=== PATIENT | male | born 1985 | race Caucasian/White ===

== ENCOUNTER 2017-02-02 09:42 | Emergency (ER) | payer SELFPAY ==
--- NOTE | 2017-02-02 09:54 | CPEKG ---
Heart Rate: 52 RR Interval: 1154 P-R Interval: 132 QRSD Interval: 94 QT Interval: 428 QTC Interval: 398 P [place]: 45 QRS [place]: 81 T Wave [place]: 56 EKG Severity - NORMAL ECG - EKG Impression: SINUS RHYTHM EKG Impression: ST ELEV, PROBABLE NORMAL EARLY REPOL PATTERN Electronically Signed By: Mustapha Hood 02-Feb-2017 14:03:49
--- NOTE | 2017-02-02 10:01 | EDPHY ---
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 - Social History Smoking Status: Current every day smoker Constitutional: Initial Vital Signs Temperature (C) 36.4 C 02/02/17 09:50 Heart Rate 64 02/02/17 09:50 Respiratory Rate 18 02/02/17 09:50 Blood Pressure 111/66 02/02/17 09:50 O2 Sat (%) 97 02/02/17 09:50 O2 Delivery Mode Room Air Allergies/Adverse Reactions: Penicillins Allergy (Unverified 02/02/17 10:02) Sulfa (Sulfonamide Antibiotics) Allergy (Unverified 02/02/17 10:02) Home Medications: Medication Instructions Recorded NK [No Known Home Meds] 02/02/17 Medical Decision Making ED Course/Re-evaluation: CHIEF COMPLAINT: Racing heart rate HISTORY OF PRESENT ILLNESS: The patient is a 31 y/o male arriving with his complaining of intermittent episodes of racing heart rate and feeling vaguely "weird" since last night. He describes a sensation of a rapid, pounding heart and like he had "taken shrooms" and was "out of my body." He lied down after the first episode and his symptoms seemed to resolve. This morning, the same symptoms recurred. His states he was pale with a heart rate of 90. The patient smokes marijuana daily, but withheld using it today thinking it could be causing his symptoms. He also tried treating it by eating sugar, but this did not affect his symptoms. He denies new medications or other changes in daily habits. No recent trauma or illness. 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 No associated shortness of breath, chest pain, fever, or other definable symptoms by the patient. REVIEW OF SYSTEMS: A 10 point review of systems was performed and is negative with the exception of the elements mentioned in the history of present illness. PHYSICAL EXAM: General Appearance: Alert, well hydrated, appropriate, and non-toxic appearing. Head: Atraumatic without scalp tenderness or obvious injury Eyes: Pupils equal, round, reactive to light and accommodation, EOMI, no trauma , no injection. Nose: Atraumatic, no rhinorrhea, clear. Throat: There is no erythema or exudates, no lesions, normal tonsils, mucus membranes moist. Neck: Supple, non-tender, no lymphadenopathy. Respiratory: No retractions, no distress, no wheezes, and no accessory muscle use. Lungs are clear to auscultation bilaterally. Cardiovascular: Regular rate and rhythm, no murmurs, rubs, or gallops. Good capillary refill all extremities. Gastrointestinal: Abdomen is soft, non-tender, non-distended, no masses, no rebound, no guarding, no peritoneal signs. Musculoskeletal: Normal active ROM of all extremities, atraumatic. Neurological: Alert, appropriate, and interactive. Nonfocal neuro exam. Skin: No rashes, good turgor, no nodules on palpation. PAST MEDICAL HISTORY: Head injury 04/25 PAST SURGICAL HISTORY: Denies SOCIAL HISTORY: at bedside. Has children. 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 Daily marijuana use. 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 DIAGNOSTICS/PROCEDURES/CRITICAL CARE TIME: The 12 lead EKG was interpreted by myself. Sinus rhythm rate 52 with early repolarization. See hard copy and/or "tracemaster" electronic copy for interpretation. DIFFERENTIAL DIAGNOSIS: The differential diagnosis for the patient's palpitations included but was not limited to anxiety, drug use, various causes of sinus tachycardia such as dehydration and medicines, SVT, atrial flutter, atrial fibrillation, pulmonary causes. MEDICAL DECISION MAKING: This is a well-appearing 31 y/o male who presents for evaluation of rapid heart rate and vague "weird-feeling" episodes recurring since last night. At time of assessment, he is asymptomatic with a heart rate of 52. His EKG is unremarkable. This could be SVT, but the highest HR noted at home was only 90, which is not consistent with SVT. I think this is more likely related to anxiety. Plan for IV, and labs including CBC, CHEM, troponin, LFTs, Mg to rule out cardiac etiology. Labs are unremarkable. Reassessed patient and discussed results. His symptoms appear more likely to be a panic attack, but he will be referred to cardiology for further evaluation of possible SVT. He's been given a prepack of Ativan as well. Return precautions given. He is comfortable with this plan. - Data Points Laboratory Results: Laboratory Results 02/02/17 10:04 02/02/17 10:04 02/02/17 02/02/17 02/02/17 10:04 10:04 10:04 WBC 5.26 10^3/uL 10^3/uL (3.80-9.50) RBC 4.85 10^6/uL 10^6/uL (4.40-6.38) Hgb 16.6 g/dL g/dL (13.7-17.5) Hct 45.8 % % (40.0-51.0) MCV 94.4 fL fL (81.5-99.8) MCH 34.2 pg H pg (27.9-34.1) MCHC 36.2 g/dL g/dL (32.4-36.7) RDW 11.9 % % (11.5-15.2) Plt Count 145 10^3/uL L 10^3/uL (150-400) MPV 9.9 fL fL (8.7-11.7) Neut % (Auto) 66.8 % % (39.3-74.2) Lymph % (Auto) 21.5 % % (15.0-45.0) Park % (Auto) 9.9 % % (4.5-13.0) Eos % (Auto) 0.8 % % (0.6-7.6) Baso % (Auto) 0.8 % % (0.3-1.7) Nucleat RBC Rel Count 0.0 % % (0.0-0.2) Absolute Neuts (auto) 3.52 10^3/uL 10^3/uL (1.70-6.50) Absolute Lymphs (auto) 1.13 10^3/uL 10^3/uL (1.00-3.00) Absolute Monos (auto) 0.52 10^3/uL 10^3/uL (0.30-0.80) Absolute Eos (auto) 0.04 10^3/uL 10^3/uL (0.03-0.40) Absolute Basos (auto) 0.04 10^3/uL 10^3/uL (0.02-0.10) Absolute Nucleated RBC 0.00 10^3/uL 10^3/uL (0-0.01) Immature Gran % 0.2 % % (0.0-1.1) Immature Gran # 0.01 10^3/uL 10^3/uL (0.00-0.10) D-Dimer < 0.27 ug/mLFEU ug/mLFEU (0.00-0.50) Sodium 140 mEq/L mEq/L (134-144) Potassium 4.3 mEq/L mEq/L (3.5-5.2) Chloride 105 mEq/L mEq/L (97-110) Carbon Dioxide 23 mEq/l mEq/l (22-31) Anion Gap 12 mEq/L mEq/L (8-16) BUN 15 mg/dL mg/dL (7-23) Creatinine 0.8 mg/dL mg/dL (0.7-1.3) Estimated GFR > 60 Glucose 99 mg/dL mg/dL (70-100) Calcium 9.6 mg/dL mg/dL (8.5-10.4) Magnesium 2.2 mg/dL mg/dL (1.6-2.3) Total Bilirubin 1.4 mg/dL mg/dL (0.1-1.4) Conjugated Bilirubin 0.3 mg/dL mg/dL (0.0-0.5) Unconjugated Bilirubin 1.1 mg/dL mg/dL (0.0-1.1) AST 25 IU/L IU/L (17-59) ALT 39 IU/L IU/L (21-72) Alkaline Phosphatase 55 IU/L IU/L (38-126) Troponin I < 0.012 ng/mL ng/mL (0-0.034) Total Protein 7.4 g/dL g/dL (6.3-8.2) Albumin 4.6 g/dL g/dL (3.5-5.0) Departure - Departure Disposition: Home, Routine, Self-Care Clinical Impression: Anxiety Condition: Good Instructions: Anxiety (ED) Additional Instructions: 1. Take a half pill of Ativan as prescribed if symptoms recur. 2. Follow up with cardiology this week for further evaluation. 3. Return to the ED for worsening of condition. Referrals: NONE *PRIMARY CARE P,. [Primary Care Provider] - As per Instructions Gaurang Hughes MD [Medical Doctor] - As per Instructions Report Scribed for: Mustapha Hood Report Scribed by: Shelley Buitrago Date of Report: 02/02/17 Time of Report: 10:02
[2017-02-02 10:02] VITALS: TEMP 97.5
[2017-02-02 10:15] LABS: % IMMATURE GRANULYOCYTES 0.2 % (0.0-1.1); ABSOLUTE IMMATURE GRANULOCYTES 0.01 10^3/uL (0.00-0.10); ADD DIFF? NO; ADD MORPH? NO; ADD SCAN? NO; ATYPICAL LYMPHOCYTE FLAG 10 (0-99); FRAGMENT RBC FLAG 0 (0-99); HEMATOCRIT 45.8 % (40.0-51.0); HEMOGLOBIN 16.6 g/dL (13.7-17.5); LEFT SHIFT FLG 0 (0-99); LIPEMIA HEMOLYSIS FLAG 90 (0-99); MEAN CELL HEMOGLOBIN 34.2 pg (27.9-34.1); MEAN CELL HEMOGLOBIN CONCENTR. 36.2 g/dL (32.4-36.7); MEAN CELL VOLUME 94.4 fL (81.5-99.8); MEAN PLATELET VOLUME 9.9 fL (8.7-11.7); PLATELET CLUMPS FLAG 10 (0-99); PLATELET COUNT 145 10^3/uL (150-400); RED BLOOD CELL COUNT 4.85 10^6/uL (4.40-6.38); RED CELL DISTRIBUTION WIDTH 11.9 % (11.5-15.2)
[2017-02-02 10:22] LABS: ALANINE AMINOTRANSFERASE 39 IU/L (21-72); ALBUMIN 4.6 g/dL (3.5-5.0); ALKALINE PHOSPHATASE 55 IU/L (38-126); ANION GAP 12 mEq/L (8-16); ASPARTATE AMINOTRANSFERASE 25 IU/L (17-59); BILIRUBIN,TOTAL 1.4 mg/dL (0.1-1.4); BILIRUBIN-CONJUGATED 0.3 mg/dL (0.0-0.5); BILIRUBIN-UNCONJUGATED 1.1 mg/dL (0.0-1.1); CALCIUM 9.6 mg/dL (8.5-10.4); CARBON DIOXIDE 23 mEq/l (22-31); CHLORIDE 105 mEq/L (97-110); CREATININE 0.8 mg/dL (0.7-1.3); GLOMERULAR FILTRATION RATE > 60; GLUCOSE 99 mg/dL (70-100); MAGNESIUM 2.2 mg/dL (1.6-2.3); POTASSIUM 4.3 mEq/L (3.5-5.2); SODIUM 140 mEq/L (134-144); TOTAL PROTEIN 7.4 g/dL (6.3-8.2)
[2017-02-02 10:32] LABS: TROPONIN I < 0.012 ng/mL (0-0.034)
[2017-02-02] MEDS ORDERED: LORAZEPAM 1 MG PREPACK#4 BTL TAKEHOME ONE (10:54)
[2017-02-02 11:13] VITALS: BP 97/61; PULSE 58; RESP 14; O2SAT 95
== END 2017-02-02 11:14 | disposition home or self-care (01) ==
DX: F41.9 Anxiety disorder, unspecified (principal); F17.200 Nicotine dependence, unspecified, uncomplicated

== ENCOUNTER 2017-02-05 16:46 | Emergency (ER) | payer SELFPAY ==
[2017-02-05 16:52] VITALS: TEMP 98.1
--- NOTE | 2017-02-05 17:26 | CPEKG ---
Heart Rate: 50 RR Interval: 1200 P-R Interval: 128 QRSD Interval: 96 QT Interval: 432 QTC Interval: 394 P [place]: 41 QRS [place]: 87 T Wave [place]: 56 EKG Severity - NORMAL ECG - EKG Impression: SINUS RHYTHM EKG Impression: ST ELEVATION STILL NOTED - LIKELY EARLY REPO Electronically Signed By: David Peralta 06-Feb-2017 08:52:59
--- NOTE | 2017-02-05 17:29 | EDPHY ---
H & P Time Seen by Provider: 02/05/17 17:21 HPI/ROS: CHIEF COMPLAINT: Palpitations HISTORY OF PRESENT ILLNESS: This patient is a 31-year-old male who presents to the Emergency Department complaining of daily intermittent palpitations often accompanied by lightheadedness and an out-of-body sensation presenting just after he arrives to work every day for the past week. He describes the experience as similar to taking a hallucinogen, though he denies drug use of any kind this week. He denies chest pain, shortness of breath, or feelings of anxiety. He was seen in the ED on Thursday, three days prior to arrival, for the same constellation of complaints. He had a normal workup at that time and was discharged home with lorazepam to use for anxiety but states that he has only taken 1/4 dose as he is "scared of pills." He denies any pertinent medical history. REVIEW OF SYSTEMS: Constitutional: No fever, no chills Eyes: No visual changes ENT: No sore throat Respiratory: No cough, no shortness of breath Cardiac: +intermittent palpitations Gastrointestinal: No nausea, no vomiting, no abdominal pain Genitourinary: No hematuria, no dysuria Musculoskeletal: No leg pain or swelling Skin: No rash Neurological: +intermittent lightheadedness, no headache, no numbness, no weakness Psychiatric: No depression Past Medical/Surgical History: Head injury 04/2016 Social History: Smokes tobacco. Smokes marijuana occasionally; no marijuana use this past week. 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 , at bedside. Smoking Status: Current every day smoker Physical Exam: General Appearance: Alert, no distress Eyes: Pupils equal and round, no conjunctival pallor or injection ENT, Mouth: Mucous membranes moist Neck: Normal inspection Respiratory: Lungs are clear to auscultation Cardiovascular: Regular rate and rhythm Gastrointestinal: Abdomen is soft and non-tender Neurological: Alert, oriented x3, cranial nerves II through XII intact, motor 5 /5, sensory intact to light touch, normal gait. Skin: Warm and dry, no rash Extremities: Nontender, no pedal edema Psychiatric: Mood and affect normal Constitutional: Initial Vital Signs Temperature (C) 36.7 C 02/05/17 16:50 Heart Rate 63 02/05/17 16:50 Respiratory Rate 20 02/05/17 16:50 Blood Pressure 107/56 L 02/05/17 16:50 O2 Sat (%) 97 02/05/17 16:50 O2 Delivery Mode Room Air Allergies/Adverse Reactions: Penicillins Allergy (Verified 02/05/17 16:49) Sulfa (Sulfonamide Antibiotics) Allergy (Verified 02/05/17 16:49) Home Medications: Medication Instructions Recorded LORAZEPAM 02/05/17 Medical Decision Making - Diagnostics EKG Interpretation: EKG interpreted by me reveals normal sinus rhythm, rate 50, no ST/T changes. Interpretation: normal EKG ED Course/Re-evaluation: Well-appearing 31-year-old male with no significant medical history presents for a second time this week complaining of an unusual sensation of feeling out- of-body with associated episodes of reported tachycardia and lightheadedness. He had a full cardiac workup on Thursday which was normal. Will obtain additional EKG today and additional labs, including TSH and magnesium. EKG obtained today is normal (as above). Labs are normal, pending TSH results. Chest x-ray is non-acute. I do not feel that further evaluation is warranted at this time. I discussed this with the patient. He understands that he should return for worsening condition but otherwise keep his scheduled follow-up appointment with cardiology. He will call for TSH results. He understands that taking Ativan as prescribed may improve his condition. He will be discharged home in good condition. Differential Diagnosis: Altered mental status including but not limited to hypoglycemia, infectious process, electrolyte abnormality, head injury and intoxicants. - Data Points Laboratory Results: Laboratory Results 02/05/17 17:55 02/05/17 17:55 Departure - Departure Disposition: Home, Routine, Self-Care Clinical Impression: Dizziness Condition: Good Instructions: Dizziness (ED) Additional Instructions: 1. Call tomorrow for your thyroid function lab results. 2. I recommend that you try taking the full dose of Ativan as prescribed previously to see if this improves your complaints. 3. Follow-up with Valerie Mack as scheduled for further evaluation. 4. Return to the Emergency Department with chest pain, heart rate above 120, fainting, seizure, or other serious concerns. Referrals: Gaurang Hughes MD [Medical Doctor] - As per Instructions Report Scribed for: Sherlyn Chavarria Report Scribed by: Giselle Menendez Date of Report: 02/05/17 Time of Report: 17:31 Physician Review and Approval Statement: 02/05/17 17:31 Portions of this note were transcribed by a medical lab technologist. I personally performed a history, physical exam, medical decision making, and confirmed accuracy of information the transcribed note.
[2017-02-05 18:07] LABS: % IMMATURE GRANULYOCYTES 0.2 % (0.0-1.1); ABSOLUTE IMMATURE GRANULOCYTES 0.01 10^3/uL (0.00-0.10); ADD DIFF? NO; ADD MORPH? NO; ADD SCAN? NO; ATYPICAL LYMPHOCYTE FLAG 20 (0-99); FRAGMENT RBC FLAG 0 (0-99); HEMATOCRIT 45.9 % (40.0-51.0); HEMOGLOBIN 16.5 g/dL (13.7-17.5); LEFT SHIFT FLG 0 (0-99); LIPEMIA HEMOLYSIS FLAG 90 (0-99); MEAN CELL HEMOGLOBIN 34.3 pg (27.9-34.1); MEAN CELL HEMOGLOBIN CONCENTR. 35.9 g/dL (32.4-36.7); MEAN CELL VOLUME 95.4 fL (81.5-99.8); MEAN PLATELET VOLUME 9.8 fL (8.7-11.7); PLATELET CLUMPS FLAG 20 (0-99); PLATELET COUNT 153 10^3/uL (150-400); RED BLOOD CELL COUNT 4.81 10^6/uL (4.40-6.38); RED CELL DISTRIBUTION WIDTH 11.8 % (11.5-15.2)
[2017-02-05 18:15] LABS: ANION GAP 13 mEq/L (8-16); CALCIUM 9.7 mg/dL (8.5-10.4); CARBON DIOXIDE 23 mEq/l (22-31); CHLORIDE 102 mEq/L (97-110); CREATININE 0.8 mg/dL (0.7-1.3); GLOMERULAR FILTRATION RATE > 60; GLUCOSE 85 mg/dL (70-100); MAGNESIUM 2.2 mg/dL (1.6-2.3); POTASSIUM 4.1 mEq/L (3.5-5.2); SODIUM 138 mEq/L (134-144)
[2017-02-05 19:00] VITALS: BP 112/60; PULSE 57; RESP 18; O2SAT 96
== END 2017-02-05 19:00 | disposition home or self-care (01) ==
DX: R42 Dizziness and giddiness (principal); F17.200 Nicotine dependence, unspecified, uncomplicated

== ENCOUNTER 2017-12-22 09:43 | Emergency (ER) | payer MEDICAID ==
[2017-12-22 09:50] VITALS: BP 116/70
--- NOTE | 2017-12-22 10:09 | EDPHY ---
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 No buttock pain. He has reproducible pain to the lumbar region with movement. No incontinence. No retention. No saddle anesthesia. No straddle injury. No head injury. No thoracic pain or injury. No cervical pain or injury. No dyspnea. No abdominal pain. REVIEW OF SYSTEMS: A ten point review of systems was performed and is negative with the exception of the items mentioned in the HPI PAST MEDICAL & SURGICAL HISTORY: No pertinent medical or surgical history SOCIAL HISTORY:Homeless PHYSICAL EXAM (Prior to examination, patient consented to physical exam, hands were washed and my usual and customary physical exam procedures followed) 1) GENERAL: Well-developed, well-nourished, alert and oriented. Appears to be in no acute distress. 2) HEAD: Normocephalic, atraumatic 3) HEENT: Pupils equal, round, reactive to light bilaterally. Sclera anicteric. 4) NECK: Full range of motion, no meningeal signs. 5) LUNGS: Clear auscultation bilaterally, no wheezes, no rhonchi, no retractions. 6) HEART: Regular rate and rhythm, no murmur, no heave, no gallop. 7) ABDOMEN: No guarding, no rebound, no focal tenderness, negative McBurney's, negative De Souza's, negative Rovsing's, negative peritoneal sign, 8) MUSCULOSKELETAL: Moving all extremities, no focal areas of tenderness, no obvious trauma. No peripheral edema or discoloration. 9) BACK: Tender to palpation midline mid lumbar region with no visible or palpable deformity. No step-off no effusion. No visible signs of trauma.. Patella, Achilles reflexes intact to bilateral strength 5/5 10) SKIN: No rash, no petechiae. 11) NEURO: Awake, alert, and oriented to person, place and time. Answers questions appropriately. There were no obvious focal neurologic abnormalities. No cerebellar dysfunction. Normal steady gait. Upper and lower extremities bilaterally with strength 5 / 5, reflexes 2+.. DIFFERENTIAL DIAGNOSIS: In no particular order, including but not limited to, fracture, sprain/strain, cauda equina, spinal infectious etiology. MEDICAL DECISION MAKING 10:07 a.m.: Given the patient's history of landing on his back last evening when he was doing hand spring and over rotated, will obtain x-ray. He is neurologically intact at this time. Care of patient under supervision of [ secondary] supervising physician Dr Hrenandez . 10:29 a.m.: Re-evaluation, discussed the imaging results interpreted by radiologist and also reviewed by myself.. He has no pain at the T11-12 level. He is neurologically intact. Lower index of suspicion for cauda equina, epidural abscess, epidural hematoma, lumbar myositis, diskitis, as the patient is neurologically intact in the lower extremities, has patella and Achilles reflexes intact and equal bilaterally, has no neurologic deficits, no incontinence, no retention, no midline pain, no fluctuance, afebrile, no flulike symptoms. Pain may be secondary to muscular strain, may be secondary to discogenic etiology. At this point I do not identify definitive indication for emergent MRI, however patient may necessitate this on an outpatient basis. Patient given acute back pain precautions. Patient verbalizes understanding of discharge instructions. I believe them be competent decision-makers. All questions and concerns have been addressed by me. Ample opportunity for questions have been provided . The patient understands that this diagnosis is provisional and can never be 100% accurate. Usual and customary warnings were given concerning the clinical impression and all the patient's questions were answered. The patient was instructed to return to the emergency department should her symptoms worsen or return, or develop any new symptoms, otherwise to followup as directed in discharge instructions. (Lauro Horner) Constitutional: Initial Vital Signs Temperature (C) 36.5 C 12/22/17 09:48 Heart Rate 60 12/22/17 09:48 Respiratory Rate 16 12/22/17 09:48 Blood Pressure 116/70 12/22/17 09:48 O2 Sat (%) 97 12/22/17 09:48 O2 Delivery Mode Room Air Allergies/Adverse Reactions: Penicillins Allergy (Verified 12/22/17 09:47) Sulfa (Sulfonamide Antibiotics) Allergy (Verified 12/22/17 09:47) Home Medications: Medication Instructions Recorded Cyclobenzaprine [Flexeril 10 MG 10 mg PO TID #15 tab 12/22/17 (RX)] Medical Decision Making - Diagnostics Imaging Results: Imaging Impressions Lumbar Spine X-Ray 12/22/17 10:05 Impression: 1. No acute findings in the lumbar spine. 2. 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 Images reviewed by myself (Lauro Horner) ED Course/Re-evaluation: I did not see this patient while he was in the emergency department. However his care was discussed with the PA while the patient was in the department. I agree with treatment plan and management (Alexander Hernandez) Departure - Departure Disposition: Home, Routine, Self-Care Clinical Impression: Injury while engaged in gymnastics Acute low back pain Qualifiers: Back pain laterality: midline Sciatica presence: without sciatica Qualified Code(s): M54.5 - Low back pain Condition: Good Instructions: Low Back Strain (ED) Additional Instructions: Seek medical attention if you develop new or worsening pain, if you develop bladder or bowel dysfunction, numbness around your perineum, foot drop, or any other symptoms that concern you. Referrals: [facility],. [Clinic] - As per Instructions Prescriptions: Cyclobenzaprine [Flexeril 10 MG (RX)] 10 mg PO TID #15 tab
== END 2017-12-22 10:35 | disposition home or self-care (01) ==
DX: S39.92XA Unspecified injury of lower back, initial encounter (principal); F17.200 Nicotine dependence, unspecified, uncomplicated; X50.9XXA Other and unspecified overexertion or strenuous movements or postures, initial encounter; Y99.8 Other external cause status; Y93.43 Activity, gymnastics

== ENCOUNTER 2018-01-05 12:09 | Emergency (ER) | payer MEDICAID ==
[2018-01-05] MEDS ORDERED: NS 1,000 ML IV ONE (13:26)
[2018-01-05] MEDS ORDERED: MECLIZINE HCL 25 MG TAB PO ONE (13:26)
[2018-01-05 13:36] LABS: PLATELET COUNT 163 10^3/uL (150-400)
[2018-01-05 14:37] VITALS: BP 98/50
--- NOTE | 2018-01-05 15:28 | EDPHY ---
H & P Smoking Status: Current every day smoker Time Seen by Provider: 01/05/18 13:04 HPI/ROS: CHIEF COMPLAINT: "I feel hung over" HISTORY OF PRESENT ILLNESS: 32-year-old male presents to the emergency department by private vehicle stating that he feels hung over. Patient admits to drinking 16 beers yesterday. He states that his father recently and he was feeling down. He typically drinks 6 beers per day. He vomited last night as well as this morning. He thinks that he may be dehydrated. He also feels dizzy. No diarrhea. He denies headache. Denies trauma. Denies chest pain or difficulty breathing. No reported fever. No abdominal pain. REVIEW OF SYSTEMS: Constitutional: No fever, no chills. Eyes: No double or blurry vision. ENT: No sore throat. Respiratory: No cough, no shortness of breath. Cardiac: No chest pain. Gastrointestinal: No abdominal pain, vomiting or diarrhea. Genitourinary: No dysuria. Musculoskeletal: No neck or back pain. Skin: No rashes. Neurological: No headache. (Eileen Bowersrina Gris) Past Medical/Surgical History: Negative (Sobeida Bowersa Gris) Social History: Single and lives in [place]. (Debra Bowers) Physical Exam: General Appearance: Alert, no distress. Mentating normally and answering questions appropriately. Vital signs are stable. Eyes: Pupils equal and round. Extraocular motions are all intact. No nystagmus. ENT: Mouth: Mucous membranes dry. Respiratory: No wheezing, rhonchi, or rales, lungs are clear to auscultation. Cardiovascular: Regular rate and rhythm. Gastrointestinal: Abdomen is soft and nontender, no masses, no rebound or guarding, bowel sounds normal. Neurological: Alert and oriented x 3, cranial nerves II through XII grossly intact Skin: Warm and dry, no rashes. Musculoskeletal: Nontender to palpate along the cervical, thoracic or lumbar spine. Neck is supple. Extremities: Full range of motion and no peripheral edema. Psychiatric: Patient is oriented X 3, there is no agitation. (Debra Bowers) Constitutional: Initial Vital Signs Temperature (C) 36.6 C 01/05/18 12:10 Heart Rate 58 L 01/05/18 12:10 Respiratory Rate 16 01/05/18 12:10 Blood Pressure 115/69 01/05/18 12:10 O2 Sat (%) 93 01/05/18 12:10 O2 Delivery Mode Room Air Allergies/Adverse Reactions: Penicillins Allergy (Verified 01/05/18 12:14) Sulfa (Sulfonamide Antibiotics) Allergy (Verified 01/05/18 12:14) Home Medications: Medication Instructions Recorded Meclizine HCl [Meclizine HCl 25 mg 25 mg PO TID PRN #10 tab 01/05/18 (RX,OTC)] Medical Decision Making ED Course/Re-evaluation: Patient had IV established and laboratory studies were drawn including CBC and chemistry which were normal. Patient received IV normal saline as well as 25 mg of IV meclizine. Patient was feeling better although still feeling slightly dizzy. He was no longer feeling nauseous. He had some juice and crackers and was feeling better. He will be discharged home. He was encouraged to return if he developed headache, vomiting, altered mental status, or any other concerns. (Debra Bowers) Differential Diagnosis: Dizziness including but not limited to peripheral and central causes of vertigo , orthostatic causes including dehydration, and blood loss. (Debra Bowers) Other Provider: The patient was evaluated and managed by the Physician Technical Supervisor. My co- signature indicates that I have reviewed this chart and I agree with the findings and plan of care as documented. I am the secondary supervising physician. (Jes Meraz) - Data Points Laboratory Results: Laboratory Results 01/05/18 13:30 01/05/18 13:30 Medications Given: Discontinued Medications Sodium Chloride (Ns) 1,000 mls @ 0 mls/hr IV ONCE ONE PRN Reason: Wide Open Stop: 01/05/18 13:27 Last Admin: 01/05/18 13:33 Dose: 1,000 mls Meclizine HCl (Meclizine Hcl) 25 mg PO EDNOW ONE Stop: 01/05/18 13:27 Last Admin: 01/05/18 13:32 Dose: 25 mg Departure - Departure Disposition: Home, Routine, Self-Care Clinical Impression: Dehydration, Benign positional vertigo Condition: Good Instructions: Dehydration (ED), Benign Paroxysmal Positional Vertigo (ED) Additional Instructions: Clear liquids and slowly advance diet as tolerated. Meclizine as needed for symptoms of vertigo associated with movements. Return to the emergency department if you develop headache, vomiting, altered mental status, or if you feel worse in any way. Referrals: Anita Mcpherson, [Doctor of Osteopathy] - 1 day, if not improved (Primary care provider neonatal specialist) Prescriptions: Meclizine HCl [Meclizine HCl 25 mg (RX,OTC)] 25 mg PO TID PRN #10 tab PRN Reason: Dizziness
== END 2018-01-05 15:53 | disposition home or self-care (01) ==
DX: E86.0 Dehydration (principal); H81.10 Benign paroxysmal vertigo, unspecified ear; F17.200 Nicotine dependence, unspecified, uncomplicated